=== PATIENT | female | born 1975 | race Caucasian/White ===

== ENCOUNTER → 2018-01-18 10:35 | Outpatient (CLI) | payer OTHER, SELFPAY ==
--- NOTE | 2018-01-18 11:04 | BI_ITS ---
MAMMOGRAPHY - BILATERAL SCREENING REASON FOR EXAM: Female, 42 years old. Routine annual screening examination. PERTINENT HISTORY: Non-contributory. TECHNIQUE: Digital bilateral breast lulu (3D mammographic acquisition) in the CC and MLO projections. 2-D mediolateral oblique (MLO) and craniocaudad (CC) views of both breasts were obtained. CAD: Full Field Digital Mammography with Computer Added Detection was performed. COMPARISON: Comparison is made with prior study dated May 13, 2013. FINDINGS: Breast Composition: The breasts are heterogeneously dense, which may obscure small masses. There are no dominant masses or suspicious calcifications. No other significant abnormalities are identified. There has been no significant change since the prior study. BI/SCREENING MAMM (CAD), BILAT IMPRESSION: Stable bilateral screening mammogram. Yearly follow-up mammogram recommended. (A) ASSESSMENT CATEGORY: BIRADS Category 1: Negative. A letter regarding these results will be sent to the patient by the facility within 30 days. Approximately 10% of breast cancers are not detected by mammography. A normal mammogram should not delay biopsy of a clinically suspicious abnormality. [id number] Electronically Signed: Mateusz Snell MD at 14:49 EDT Tel [phone], Service support ,
== END ==
PROVIDERS: Family Provider Family Medicine; PCP Family Medicine; Referring Provider Obstetrics & Gynecology; Visit Provider Obstetrics & Gynecology
DX: Z12.31 Encounter for screening mammogram for malignant neoplasm of breast (principal)
CPT/HCPCS: 77063; 77067

== ENCOUNTER 2018-05-23 10:13 | Emergency (ER) | payer OTHER, SELFPAY ==
[2018-05-23 10:14] VITALS: BP 168/95; PULSE 113; RESP 20; TEMP 36.3; O2SAT 96; BMI 27.3
--- NOTE | 2018-05-23 10:23 | ED.VIS.GEN ---
History of Present Illness Chief Complaint: Allergic Reaction Detail of Chief Complaint: Rash, lips, tongue throat swelling and wheezing Informant: Patient, Significant Other Onset: Today Context: Sudden Onset, - - 1 hour prior to presentation Timing: Continuous Quality: Erythematous confluent rash that is pruritic with systemic symptoms Location: Generalized Current Severity: Moderate Maximum Severity: Severe Worsened by: Unknown precipitating agent Relieved by: Improved after Zyrtec and Benadryl Associated Symptoms: Symptoms of angioedema, wheezing, pruritic erythematous generalized rash Narrative: Patient is a 42-year-old woman who presents with anaphylactic reaction. Precipitating factor unknown. Patient noted rash or proximal 1 hour ago. This was associated with swelling of her lips, tongue and throat. She also reported change in voice and difficulty breathing. She took a Zyrtec tablet. She took a Benadryl tablet 30 minutes prior to presentation. She has no known history of allergic reaction. She did not ingest any berries, nuts or shellfish in the past 1-2 hours. She denies visual, ocular auditory symptoms. She denies nausea, vomiting or diarrhea. She denies orthostatic symptoms. She has no other complaints. Prior similar symptoms: No Recent Illness/Hospitalization: No Past Medical History - Allergies and Home Meds Allergies/Adverse Reactions: Allergies adhesive tape Allergy (Verified 02/09/17 18:17) Rash Primary Care Physician: Eligio Carmona III, MD [Primary Care Provider] - Prior records reviewed: Yes Past Medical History: - - Skin cancer Lives: Spouse/ Significant Other, With Family Smoking Status: Former smoker Alcohol: Rare Drugs: None Review of Systems General: Denies: Chills, Fever, Malaise, Sweats Eyes: Denies: Visual changes - bilaterally, Blurred Vision - bilaterally, Diplopia ENT: Denies: Bilateral ear pain, Rhinorrhea, Sore throat Cardiovascular: Reports: Palpitations. Denies: Chest pain Respiratory: Reports: Dyspnea. Denies: Cough, Dyspnea on exertion Gastrointestinal: Denies: Abdominal pain, Nausea, Vomiting, Diarrhea, Melena, Hematochezia Genitourinary: Denies: Dysuria, Hematuria, Frequency Musculoskeletal: Denies: Back pain, Extremity Pain Skin: Reports: Rash - Generalized erythematous confluent. Denies: Wounds Neurological: Denies: Headache, Weakness, Numbness Hematologic: Denies: Easy bruising, Easy bleeding Allergy: Reports: Swelling of the mouth, Swelling of the tongue, - - She also complains of swelling of her throat Physical Exam Vital Signs/Narrative: Vital Signs Temp Pulse Resp BP Pulse Ox 05/23/18 10:14 97.4 F L 113 H 20 H 168/95 H 96 Inital Vital Signs reviewed: Yes General: Well nourished, Well developed, - - Patient appears slightly anxious Head: Normocephalic, Atraumatic. Negative for: Trauma Eyes: Perrl, EOMI. Negative for: Pale conjunctiva, Scleral icterus ENT: Moist mucous membranes, No rhinorrhea, TM's clear, - - Trachea is midline and there is no stridor. Negative for: Nasal congestion Neck: Supple, Nontender, No lymphadenopathy. Negative for: No JVD Cardiovascular: Regular rhythm, No murmurs, Normal S1, Normal S2, Tachycardia Respiratory: Wheezing. Negative for: CTA bilaterally Abdomen: Soft, Nontender, Nondistended, Normal bowel sounds Rectal: Deferred Extremities: Nontender, No edema Skin: Rash, - - Blanching erythematous confluent rash. Negative for: Cyanosis, Jaundice Neurological: Alert, Oriented x3, Cranial nerves II-XII grossly intact, Normal Strength, Normal Sensation Psychological: Normal affect, Normal Mood Diagnostic/Tx/Re-eval - Rhythm Strip Rhythm Strip: Sinus Rhythm Rate: 111 - Complex is narrow Ectopy: None - Medical Decision Making Patient has anaphylactic reaction to unknown antigen. Will treat with epinephrine and Solu-Medrol. Patient has been informed she will need to be observed for 6 hours. Patient was reassessed at 11:30 AM. Rash has resolved. Lips and tongue are no longer swollen. Voice has normalized. There is no wheezing noted. Patient was reassessed at 1245. All of her symptoms have resolved. We will continue to watch. If she does not rebound plan is to discharge with prescription for EpiPen and allergy testing to determine what the precipitating antigen was. Patient was reassessed at 1415. She has had no relapse. Therefore, she will be discharged to home with EpiPen and will need outpatient allergy testing. 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 You will need to contact Dr. Eligio Carmona iii to arrange for allergy testing. If you have a similar reaction use EpiPen immediately. Your prescription was electronically transmitted to [facility] your designated pharmacy of choice.
[2018-05-23 10:28] VITALS: PULSE 100; RESP 18
[2018-05-23] MEDS: MethylPREDNISolone 125 MG/2 ML Vial IV (10:30)
[2018-05-23] MEDS: Albuterol 2.5 MG/3 ML VIAL.NEB. INHALATION (10:30)
[2018-05-23 12:40] VITALS: BP 146/72; PULSE 103; RESP 15; O2SAT 98
[2018-05-23 14:03] VITALS: BP 147/85; PULSE 115; RESP 14; O2SAT 96
== END 2018-05-23 14:22 | disposition home or self-care (01) ==
PROVIDERS: Emergency Provider Emergency Medicine; Family Provider Family Medicine; PCP Family Medicine
DX: T78.2XXA Anaphylactic shock, unspecified, initial encounter (principal); Z87.891 Personal history of nicotine dependence
CPT/HCPCS: 94640; 96374; 99284

== ENCOUNTER 2020-06-24 08:00 | Outpatient (RCR) | payer OTHER, SELFPAY | END 2020-09-06 23:59 | LOC: IMMUN 08:00 | PROVIDERS: PCP Family Medicine; Visit Provider Family Medicine | DX: Z23 Encounter for immunization (principal) | CPT/HCPCS: 0001A; 0002A; 91300 ==